=== PATIENT | female | born 1955 | race Two or more races ===

== ENCOUNTER 2021-04-01 06:32 | Day surgery (SDC) | payer OTHER | END 2021-04-01 11:15 | disposition home or self-care (01) | LOC: AMB-ENDOS 06:32 | PROVIDERS: ATTEND Surgery | DX: K57.32 Diverticulitis of large intestine without perforation or abscess without bleeding (principal); K64.1 Second degree hemorrhoids; Z20.822 Contact with and (suspected) exposure to COVID-19 ==

== ENCOUNTER 2022-06-26 13:44 | Outpatient (CLI) | payer OTHER | END 2022-06-26 14:08 | disposition home or self-care (01) | LOC: RAD 13:44 | DX: J44.9 Chronic obstructive pulmonary disease, unspecified (principal) ==

== ENCOUNTER 2023-05-08 13:16 | Outpatient (CLI) | payer OTHER | END 2023-05-08 13:29 | disposition home or self-care (01) | LOC: TOM 13:16 | PROVIDERS: ATTEND Internal Medicine Cardiovascular Disease | DX: J82.83 Eosinophilic asthma (principal) ==

== ENCOUNTER 2024-03-21 15:09 | Outpatient (CLI) | payer OTHER | END 2024-03-21 15:15 | disposition home or self-care (01) | LOC: RAD 15:09 | DX: M54.6 Pain in thoracic spine (principal); S14.109A Unspecified injury at unspecified level of cervical spinal cord, initial encounter; S33.9XXS Sprain of unspecified parts of lumbar spine and pelvis, sequela ==

== ENCOUNTER 2024-04-11 14:25 | Outpatient (CLI) | payer OTHER | END 2024-04-11 14:31 | disposition home or self-care (01) | LOC: RAD 14:25 | PROVIDERS: ATTEND Otolaryngology | DX: R05.9 Cough, unspecified (principal) ==